=== PATIENT | female | born 1990 | race Caucasian/White ===

== ENCOUNTER → 2024-08-14 10:35 | Outpatient (REF) | payer BC, SELFPAY | LOC: PNTC 10:35 | PROVIDERS: ATTENDING PHYSICIAN Student in an Organized Health Care Education/Training Program | DX: O36.8190 Decreased fetal movements, unspecified trimester, not applicable or unspecified (principal) | CPT/HCPCS: 59025; 76815; 93976 ==

== ENCOUNTER 2024-11-14 15:31 | Observation (INO) | payer BC, SELFPAY ==
[2024-11-14 15:45] VITALS: BP 105/57; BMI 36.9
== END 2024-11-14 17:45 | disposition home or self-care (01) ==
LOC: LDRP 15:31
PROVIDERS: ADMITTING PHYSICIAN Student in an Organized Health Care Education/Training Program
DX: O36.8130 Decreased fetal movements, third trimester, not applicable or unspecified (principal); Z3A.37 37 weeks gestation of pregnancy
CPT/HCPCS: 76815; 86850; 86900; 86901; G0378

== ENCOUNTER 2024-12-03 19:26 | Inpatient (IN) | payer BC, SELFPAY ==
[2024-12-03 19:58] VITALS: BP 138/70; BMI 36.9
[2024-12-03 20:34] LABS: % Basophils 0.2 % (0-2); % Eosinophils 1.4 % (0-6); % Lymphocytes 16.4 % (20.5-51.1); % Monocytes 6.5 % (1.7-9.3); % Neutrophils 74.5 % (42.2-75.2); Absolute Eosinophils 0.2 10^3/uL (0-0.7); Absolute Immature Granulocytes 0.1 10^3/uL (0-0.05); Absolute Lymphocytes 2.1 10^3/uL (1.2-3.4); Absolute Monocytes 0.8 10^3/uL (0.1-0.6); Absolute Neutrophils 9.4 10^3/uL (1.4-6.5); Hematocrit 37.2 % (37.0-47.0); Hemoglobin 12.8 g/dL (12.0-16.0); Mean Corp Hgb Conc. 34.4 g/dL (33.0-37.0); Mean Corpuscular Hgb 31.7 pg (27.0-31.0); Mean Corpuscular Volume 92.1 fL (81.0-99.0); Mean Platelet Volume 10.6 fL (7.4-10.4); Nucleated Red Blood Cells % 0 %; Platelet Count 212 10^3/uL (130-400); Red Blood Cell Count 4.04 10^6/uL (4.20-5.40); White Blood Cell Count 12.7 10^3/uL (4.8-10.8)
[2024-12-03] MEDS: LR 1000 IV (20:50)
[2024-12-03] MEDS: CYTOTEC 25 MICROGRAM VAG (21:06)
[2024-12-04] MEDS: CYTOTEC 50 MICROGRAM PO ×2 (01:09→05:08)
[2024-12-04] MEDS: CYTOTEC PO ×3 (08:00→16:00)
[2024-12-04] MEDS: PITOCIN 30 UNITS/NSS 500 ML IV (09:30)
[2024-12-04] MEDS: FLUSH (NSS) 1 FLUSH IV (09:30)
[2024-12-04] MEDS: LR 1000 IV ×3 (12:58→23:26)
[2024-12-04] MEDS: SUBLIMAZE 100 MCG EPIDURAL (16:34)
[2024-12-04] MEDS: FENTANYL/BUPIVACAINE 100 EPIDURAL ×2 (16:34→23:52)
[2024-12-05] MEDS: PITOCIN 30 UNITS/NSS 500 ML IV (07:04)
[2024-12-05] MEDS: MOTRIN 600 MG PO ×2 (09:12→20:59)
[2024-12-05] MEDS: FOLVITE 1 MG PO (09:12)
[2024-12-05] MEDS: SENOKOT-S 1 TABLET PO (09:12)
[2024-12-06 04:12] LABS: Hematocrit 35.1 % (37.0-47.0); Hemoglobin 12.4 g/dL (12.0-16.0)
[2024-12-06] MEDS: FOLVITE 1 MG PO (08:30)
[2024-12-06] MEDS: PRENATAL PLUS 1 TABLET PO (08:30)
[2024-12-06] MEDS: TYLENOL 650 MG PO (20:48)
[2024-12-06] MEDS: MOTRIN 600 MG PO (20:48)
[2024-12-07] MEDS: FOLVITE 1 MG PO (08:53)
[2024-12-07] MEDS: PRENATAL PLUS 1 TABLET PO ×2 (08:53→09:02)
[2024-12-07] MEDS: FEOSOL 325 MG PO ×2 (08:53→09:01)
[2024-12-07] MEDS: MOTRIN 600 MG PO (08:54)
[2024-12-07] MEDS: TYLENOL 650 MG PO (08:54)
[2024-12-07] MEDS: SENOKOT-S 1 TABLET PO (08:57)
[2024-12-07] MEDS: M-M-R II 0.5 ML SC (11:51)
[2024-12-09 14:57] LABS: Syphilis/T. pallidum Ab Reflex Negative (Negative)
== END 2024-12-07 14:12 | disposition home or self-care (01) | DRG 807 ==
LOC: LDRP 19:26
PROVIDERS: Obstetrics & Gynecology; ADMITTING PHYSICIAN Student in an Organized Health Care Education/Training Program
PROC: 3E0P7VZ Introduction of Hormone into Female Reproductive, Via Natural or Artificial Opening (ICD-10-PCS; 2024-12-03)
PROC: 10907ZC Drainage of Amniotic Fluid, Therapeutic from Products of Conception, Via Natural or Artificial Opening (ICD-10-PCS; 2024-12-04)
PROC: 4A1HXCZ Monitoring of Products of Conception, Cardiac Rate, External Approach (ICD-10-PCS; 2024-12-04)
PROC: 0UQG7ZZ Repair Vagina, Via Natural or Artificial Opening (ICD-10-PCS; 2024-12-04)
PROC: 10E0XZZ Delivery of Products of Conception, External Approach (ICD-10-PCS; 2024-12-04)
PROC: 0KQM0ZZ Repair Perineum Muscle, Open Approach (ICD-10-PCS; 2024-12-04)
PROC: 3E033VJ Introduction of Other Hormone into Peripheral Vein, Percutaneous Approach (ICD-10-PCS; 2024-12-04)
DX: O48.0 Post-term pregnancy (principal); Z37.0 Single live birth; O69.2XX0 Labor and delivery complicated by other cord entanglement, with compression, not applicable or unspecified; Z3A.40 40 weeks gestation of pregnancy; O70.1 Second degree perineal laceration during delivery; O76 Abnormality in fetal heart rate and rhythm complicating labor and delivery
CPT/HCPCS: 88307; 85014; 85018; 85025; 86780; 86850; 86900; 86901